=== PATIENT | female | born 1985 | race Caucasian/White ===

== ENCOUNTER 2017-05-15 19:22 | Emergency (ER) | payer OTHER ==
[~2017-05-15] VITALS: Ht 167.6 cm; Wt 41.6 kg
[~2017-05-15 19:22] MED LIST: CLARITIN10 MG PO; FLINTSTONES1 TABLET PO; KEFLEX500 MG PO; MACROBID100 MG PO; Motrin PO; NAPROSYN500 MG PO; NOHOMEMEDS; PREDNISONE20 MG PO; PYRIDIUM100 MG PO; Percocet 5/325,Endoc PO; TRAMADOL HCL50 MG PO; ZOFRAN4 MG PO; ~No Medications
[2017-05-15 20:07] LABS: HEMATOCRIT 40.3 % (36.0-46.0); MCH 33.3 PG (29.0-34.0); MCV 95.3 FL (83-99); MEAN PLAT.VOLUME 9.9 uM^3 (9.5-12.4); PLATELET COUNT 184 K/uL (156-360); RBC DIS.WIDTH-CV 12.4 % (11.8-14.6); RBC DIS.WIDTH-SD 43.7 % (39-53); RED BLOOD COUNT 4.23 M/uL (3.80-5.20); WHITE BLOOD COUNT 6.6 K/uL (4.1-10.2)
[2017-05-15 20:16] LABS: CHLORIDE 104 mEq/L (99-109); POTASSIUM 4.1 mEq/L (3.7-5.4); SODIUM 137 mEq/L (136-147)
[2017-05-15 20:18] LABS: ADD MIUA? YES; BILIRUBIN NEGATIVE; BLOOD NEGATIVE; COLOR YELLOW ((YELLOW)); GLUCOSE (STRIP) NEGATIVE; KETONES NEGATIVE; LEUKOCYTES NEGATIVE; NITRITE NEGATIVE; PROTEIN (STRIP) 30; SPECIFIC GRAVITY 1.017 (1.000-1.030); UROBILINOGEN 0.2 MG/DL (0.2-1.0)
[2017-05-15 20:18] LABS: GLUCOSE 126 mg/dL (70-99)
[2017-05-15 20:19] LABS: ANION GAP 10 MEQ/L (2-14)
[2017-05-15 20:20] LABS: TOTAL BILIRUBIN 0.4 mg/dL (0.0-1.0)
[2017-05-15 20:21] LABS: ALKALINE PHOSPHATASE 80 IU/L (3-129)
[2017-05-15 20:22] LABS: GFR ESTIMATE (CALCULATED) > 59 mL/min/
[2017-05-15 20:23] LABS: UREA NITROGEN (BUN) 20 mg/dL (9-23)
[2017-05-15 20:30] LABS: QUANTITATIVE HCG < 4.0 MIU/ML
[2017-05-15 20:31] LABS: BACTERIA 1+ /HPF; CASTS NONE SEEN /LPF; CRYSTALS PRESENT; EPITHELIAL CELLS 2+ /HPF; MUCUS 3+ /LPF; RED BLOOD CELLS 0-5 /HPF (0-5); UCUL ADDED? NO; WHITE BLOOD CELLS 0-5 /HPF (0-5)
[2017-05-15 20:32] LABS: AMORPHOUS URATES CRYSTALS 1+
[2017-05-15] MEDS ORDERED: MIRALAX255 GM PO (22:04)
[2017-05-15] MEDS ORDERED: BENTYL20 MG PO (22:04)
[2017-05-15 22:46] VITALS: BP 110/55
== END 2017-05-15 22:48 | disposition home or self-care (01) ==
LOC: RME 19:22 → EME 19:22 → RME 22:48
DX: R10.31 Right lower quadrant pain (principal); F17.200 Nicotine dependence, unspecified, uncomplicated; K59.00 Constipation, unspecified
CPT/HCPCS: 74177; 80053; 81003; 84702; 85027; 99281; 99285; J1885; J7030

== ENCOUNTER 2017-08-01 03:17 | Emergency (ER) | payer OTHER ==
[~2017-08-01] VITALS: Ht 167.6 cm; Wt 44.1 kg
[~2017-08-01 03:17] MED LIST changes: +BENTYL20 MG PO; +MIRALAX255 GM PO
[2017-08-01 05:24] LABS: CHLORIDE 109 mEq/L (99-109); POTASSIUM 3.8 mEq/L (3.7-5.4); SODIUM 140 mEq/L (136-147)
[2017-08-01 05:25] LABS: GLUCOSE 108 mg/dL (70-99)
[2017-08-01 05:27] LABS: ANION GAP 6 MEQ/L (2-14)
[2017-08-01 05:29] LABS: GFR ESTIMATE (CALCULATED) > 59 mL/min/
[2017-08-01 05:30] LABS: UREA NITROGEN (BUN) 17 mg/dL (9-23)
[2017-08-01 05:34] LABS: HEMATOCRIT 37.1 % (36.0-46.0); MCH 33.1 PG (29.0-34.0); MCHC 34.2 G/DL (30.0-36.0); MCV 96.6 FL (83-99); PLATELET COUNT 178 K/uL (156-360); RBC DIS.WIDTH-CV 12.3 % (11.8-14.6); RBC DIS.WIDTH-SD 43.8 % (39-53); RED BLOOD COUNT 3.84 M/uL (3.80-5.20); WHITE BLOOD COUNT 5.1 K/uL (4.1-10.2)
[2017-08-01 05:38] LABS: QUANTITATIVE HCG < 4.0 MIU/ML
[2017-08-01] MEDS ORDERED: FIORICET,ESG1 TABLET PO (05:44)
[2017-08-01 05:52] VITALS: BP 119/69
== END 2017-08-01 05:54 | disposition home or self-care (01) ==
LOC: EXP 03:17 → EME 03:17 → EXP 05:54
PROVIDERS: Physician Assistant
DX: R51 Headache (principal); F17.200 Nicotine dependence, unspecified, uncomplicated
CPT/HCPCS: 80048; 81003; 84702; 85027; 99281; 99284; J1885; Q0169

== ENCOUNTER 2018-02-26 12:30 | Emergency (ER) | payer OTHER ==
[~2018-02-26] VITALS: Ht 167.6 cm; Wt 43.1 kg
[~2018-02-26 12:30] MED LIST changes: +FIORICET,ESG1 TABLET PO
[2018-02-26 12:56] LABS: APPEARANCE SL.HAZY ((CLEAR)); BILIRUBIN NEGATIVE; BLOOD MODERATE; COLOR YELLOW ((YELLOW)); GLUCOSE (STRIP) NEGATIVE; KETONES 5; LEUKOCYTES NEGATIVE; NITRITE NEGATIVE; PROTEIN (STRIP) 30; SPECIFIC GRAVITY 1.021 (1.000-1.030); UROBILINOGEN 0.2 MG/DL (0.2-1.0)
[2018-02-26 13:19] LABS: BACTERIA NONE SEEN /HPF; EPITHELIAL CELLS RARE /HPF; MUCUS 2+ /LPF; UCUL ADDED? YES
[2018-02-26] MEDS ORDERED: LEVAQUIN750 MG PO (13:54)
[2018-02-26 14:06] LABS: HEMATOCRIT 38.9 % (36.0-46.0); HEMOGLOBIN 13.5 G/DL (11.9-15.5); MCH 33.4 PG (29.0-34.0); MCHC 34.7 G/DL (30.0-36.0); MCV 96.3 FL (83-99); PLATELET COUNT 181 K/uL (156-360); RBC DIS.WIDTH-CV 12.5 % (11.8-14.6); RBC DIS.WIDTH-SD 44.5 % (39-53); RED BLOOD COUNT 4.04 M/uL (3.80-5.20); WHITE BLOOD COUNT 7.1 K/uL (4.1-10.2)
[2018-02-26 14:15] LABS: CHLORIDE 105 mEq/L (99-109); POTASSIUM 4.5 mEq/L (3.7-5.4); SODIUM 138 mEq/L (136-147)
[2018-02-26 14:16] LABS: GLUCOSE 88 mg/dL (70-99)
[2018-02-26 14:20] LABS: CREATININE 0.7 mg/dL (0.6-1.3); GFR ESTIMATE (CALCULATED) > 59 mL/min/
[2018-02-26 14:21] LABS: UREA NITROGEN (BUN) 13 mg/dL (9-23)
[2018-02-26 14:31] LABS: QUANTITATIVE HCG < 4.0 MIU/ML
[2018-02-26] MEDS ORDERED: NITROFURANTOIN100 MG PO (14:38)
[2018-02-26] MEDS ORDERED: NORCO 5/3251 TABLET PO (15:10)
[2018-02-26 16:06] VITALS: BP 121/86
== END 2018-02-26 16:07 | disposition home or self-care (01) ==
LOC: EME 12:30
PROVIDERS: Emergency Medicine Emergency Medical Services
DX: N12 Tubulo-interstitial nephritis, not specified as acute or chronic (principal); E86.0 Dehydration; R11.0 Nausea; F17.200 Nicotine dependence, unspecified, uncomplicated
CPT/HCPCS: 80048; 81003; 84702; 85027; 87086; 99281; 99285; J0696; J0780; J3010; J7030